=== PATIENT | female | born 1950 | race Caucasian/White ===

== ENCOUNTER 2021-11-29 00:33 | Emergency (ER) | payer MEDICARE ==
[~2021-11-29] VITALS: Ht 165.1 cm; Wt 86.2 kg
== END 2021-11-29 03:48 | disposition home or self-care (01) ==
LOC: ED 00:33
DX: S01.81XA Laceration without foreign body of other part of head, initial encounter (principal); S01.511A Laceration without foreign body of lip, initial encounter; W01.0XXA Fall on same level from slipping, tripping and stumbling without subsequent striking against object, initial encounter; Y93.89 Activity, other specified; Y92.89 Other specified places as the place of occurrence of the external cause; Y99.8 Other external cause status